=== PATIENT | female | born 1960 | race Caucasian/White ===

== ENCOUNTER → 2022-06-05 | Outpatient (CLI) | payer OTHER ==
--- NOTE | 2022-06-05 13:16 | Diagnostic Imaging Report ---
History: Low back pain TECHNIQUE: 3 views of the lumbar spine COMPARISON: None FINDINGS: There is slight right convex curvature of the lumbar spine centered at L2-L3. There is no significant spondylolisthesis. There are severe degenerative changes at L4-L5 and L5-S1 with moderate degenerative changes elsewhere in the lumbar spine. Vertebral body heights are preserved. There is multilevel facet arthropathy. Bilateral sacral iliac joints are patent. There are phleboliths in the pelvis. Multiple calcified gallstones are noted. IMPRESSION: 1. Advanced degenerative changes in the lower lumbar spine with no acute fracture seen. 2. Cholelithiasis. Dictated by: Dictated on workstation # [id number]
== END ==
LOC: RAD FS 11:09
PROVIDERS: ATTEND Registered Nurse Emergency
DX: M48.061 Spinal stenosis, lumbar region without neurogenic claudication (principal); K80.20 Calculus of gallbladder without cholecystitis without obstruction
CPT/HCPCS: 72100